=== PATIENT | female | born 1960 | race Caucasian/White ===

== ENCOUNTER → 2020-02-13 | Day surgery (SDC) | payer BC, OTHER ==
[2019-12-01 10:54] LABS: BASOPHILS % 0.3 % (0.0-1.0); EOSINOPHILS # (AUTO) 0.1 (0.0-0.4); EOSINOPHILS % 1.9 % (0.0-6.0); HEMATOCRIT 43.7 % (34.2-44.1); HEMOGLOBIN 14.3 g/dL (12.0-16.0); LYMPHOCYTES # (AUTO) 1.1 (1.0-3.2); LYMPHOCYTES % 18.4 % (18.0-39.1); MEAN CORPUSCULAR HEMOGLOBIN 29.6 pg (28-32); MEAN CORPUSCULAR HGB CONC 32.7 g/dL (31-35); MEAN CORPUSCULAR VOLUME 90.5 fL (81-99); MONOCYTES # (AUTO) 0.5 (0.2-0.8); MONOCYTES % 8.5 % (4.4-11.3); NEUTROPHILS # (AUTO) 4.2 (2.1-6.9); NEUTROPHILS % 70.7 % (38.7-80.0); PLATELET COUNT 279 x10e3/uL (140-360); RED BLOOD COUNT 4.83 x10e6/uL (3.6-5.1); RED CELL DISTRIBUTION WIDTH 13.2 % (11.7-14.4)
[2019-12-01 11:15] LABS: ANION GAP 10.8 mmol/L (8-16); BLOOD UREA NITROGEN 15 mg/dL (7-26); BUN/CREATININE RATIO 17 (6-25); CALCIUM 10.1 mg/dL (8.4-10.2); CARBON DIOXIDE 30 mmol/L (22-29); CHLORIDE 104 mmol/L (98-107); EST GLOMERULAR FILTRATION RATE > 60 ML/MIN (60-); GLUCOSE 95 mg/dL (74-118); POTASSIUM 3.8 mmol/L (3.5-5.1); SODIUM 141 mmol/L (136-145)
[2020-02-09 12:20] LABS: BASOPHILS % 0.3 % (0.0-1.0); EOSINOPHILS # (AUTO) 0.2 (0.0-0.4); HEMATOCRIT 41.9 % (34.2-44.1); HEMOGLOBIN 13.7 g/dL (12.0-16.0); LYMPHOCYTES # (AUTO) 1.2 (1.0-3.2); LYMPHOCYTES % 17.3 % (18.0-39.1); MEAN CORPUSCULAR HEMOGLOBIN 28.7 pg (28-32); MEAN CORPUSCULAR HGB CONC 32.7 g/dL (31-35); MEAN CORPUSCULAR VOLUME 87.7 fL (81-99); MONOCYTES # (AUTO) 0.7 (0.2-0.8); MONOCYTES % 9.6 % (4.4-11.3); NEUTROPHILS # (AUTO) 4.9 (2.1-6.9); NEUTROPHILS % 69.5 % (38.7-80.0); PLATELET COUNT 256 x10e3/uL (140-360); RED BLOOD COUNT 4.78 x10e6/uL (3.6-5.1); RED CELL DISTRIBUTION WIDTH 13.3 % (11.7-14.4)
[2020-02-09 12:47] LABS: ANION GAP 14.7 mmol/L (8-16); BLOOD UREA NITROGEN 20 mg/dL (7-26); BUN/CREATININE RATIO 22 (6-25); CARBON DIOXIDE 27 mmol/L (22-29); CHLORIDE 104 mmol/L (98-107); CREATININE, SERUM 0.92 mg/dL (0.57-1.11); EST GLOMERULAR FILTRATION RATE > 60 ML/MIN (60-); GLUCOSE 99 mg/dL (74-118); POTASSIUM 4.7 mmol/L (3.5-5.1); SODIUM 141 mmol/L (136-145)
--- NOTE | 2020-02-09 12:58 | Diagnostic Imaging Report ---
Exam: Chest radiograph Clinical History: Preoperative clearance Findings: The cardiomediastinal silhouette and lungs are normal. The regional skeleton and soft tissue are unremarkable. There is no evidence of pleural effusion or pneumothorax. Impression: No radiographic evidence of acute cardiopulmonary disease. Signed by: Dr. Rai Mccollum MD on 02/09/2020 12:54 PM
[~2020-02-13] MED LIST: BREO ELLIPTA 11 EACH INH; BUPIVACAINE HCL 0.5% INJ 30 ML VIAL INJ ONE; CEFAZOLIN SOD 1 GM/NS 50ML 100 ML IV ONE; DEXAMETHASONE SOD PHOS INJ 4 MG/ML VIAL ONE; DIOVAN; FENTANYL CITRATE/PF 100MCG/2 ML INJ ONE; HYDROCHLOROTHIA25 MG PO; LIDOCAINE HCL 2% LOCAL INJ 5 ML SDV VIAL INJ ONE; LISINOPRIL10 MG PO; NEOSTIGMINE 1 MG/ML 10ML VIAL ONE; ONDANSETRON HCL INJ 2MG/ML 2ML 2 MG/ML VIAL ONE; PRAVASTATIN SOD20 MG PO; PROAIR HFA INH8.5 GM INH; PROPOFOL IV EMULSION 10 MG/ML 20 ML VIAL ONE; SEVOFLURANE INHAL SOLN 250 ML PEN BTL ONE
--- NOTE | 2020-02-13 09:51 | Diagnostic Imaging Report ---
OR Fluoroscopy: IMPRESSION: Fluoroscopy service provided in the OR. Interpretation not requested. Signed by: Benji Michelle MD on 02/13/2020 9:48 AM
[2020-02-13 10:25] VITALS: BP 136/73
--- NOTE | 2020-02-13 18:41 | Operative Report ---
DATE OF PROCEDURE: 02/13/2020 SURGEON: Shonna Oates DPM UNDERGROUND HEAVY EQUIPMENT OPERATOR: None. PREOPERATIVE DIAGNOSES: 1. Right plantar flex metatarsal with dislocated MPJ 2nd. 2. Right 2nd hammertoe. 3. Right DIPJ hammertoe 3rd digit, right foot. POSTOPERATIVE DIAGNOSES: 1. Right plantar flex metatarsal with dislocated MPJ 2nd. 2. Right 2nd hammertoe. 3. Right DIPJ hammertoe 3rd digit, right foot. PROCEDURES: 1. Rayne osteotomy, 2nd with internal fixation. 2. Arthrodesis right 2nd PIPJ. 3. Arthroplasty DIPJ, 3rd. ANESTHESIA: General anesthetic. HEMOSTASIS: Thigh tourniquet at 350 mmHg. ESTIMATED BLOOD LOSS: Less than 10 mL. MATERIALS: A 2 x 4 allograft, a 60 mm 10-degree angle Smart Toe, a 60 mm x 20 mm snap screw. COMPLICATIONS: None. CONDITION: Stable. PROCEDURE IN DETAIL: Under mild sedation, the patient was brought to the operating room, placed on the operating table in supine position. Following IV sedation, anesthesia was obtained with a general anesthetic. At this point, the right foot was scrubbed, prepped, and draped in the usual aseptic manner. The leg was lowered to the table after the pneumatic ankle tourniquet was inflated to 350 mmHg. Attention was then directed to the dorsal aspect of the right foot, where a linear incision was made overlying the 2nd MPJ. The incision was deepened down to the level of the MPJ. A linear capsulotomy was then made taking care to retract or cauterize neurovascular structures as necessary. Once the metatarsal was visualized and the MPJ was visualized, it was fully dislocated. The linear capsulotomy was performed. The metatarsal was then freed from its attachments. The Rayne decompression osteotomy was then made at the 2nd metatarsal. It was then fixated utilizing a 16 mm snap screw from [employer]. It was noted to be adequate alignment clinically with the use of intraoperative fluoroscopy. Arthrodesis PIPJ, 2nd right. Attention was then directed to the dorsal aspect of the PIPJ, where a linear incision was made overlying the PIPJ joint. The incision was deepened down to the level of the extensor tendon. The extensor tendon was then tenotomized. The joint was then prepared for arthrodesis. A Smart Toe 60 mm x 10 mm bent was used. The first implant that was open, popped off and fell on the floor, so a second implant had to be used. The first implant never touch the patient. A Smart Toe was then inserted in a standard fashion. There was noted to be adequate compression and adequate alignment clinically with the use of intraoperative fluoroscopy. Arthroplasty DIPJ, 3rd. Attention was then directed to the DIPJ, where a linear incision was made overlying the DIPJ. The incision was deepened to the level of the capsule. Linear capsulotomy was then performed. The contracture was released at the joint and the joint acquired a more anatomical position. All incisions were then flushed with copious amount of normal sterile saline solution. A 2 x 4 AlloWrap was then inserted into the area of the incision at the 2nd noted to prevent adhesions to promote healing to the area. The area was then closed closing the deepest layer with 3-0 Vicryl, 4-0 Vicryl, and 4-0 nylon. Clean dressing was applied consisting of Adaptic, Coban, 4x4s, Kerlix, and an Yusef bandage. The tourniquet was deflated. There was noted to be hyperemic response to all the digits. The patient tolerated the procedure and anesthesia well, was transferred to recovery room with vital signs stable and vascular status intact. The patient will be discharged home when she meets treatment criteria. She was given instructions to be nonweightbearing, to ice and elevate the foot while at rest, follow up with me in the office and to call office if any questions, concerns, or any new problems arise. ROSALINA Ford/STEFFL /[id number]
== END | disposition home or self-care (01) ==
LOC: OR 05:24
PROVIDERS: ATTEND Podiatrist Foot & Ankle Surgery
DX: M21.271 Flexion deformity, right ankle and toes (principal); M20.41 Other hammer toe(s) (acquired), right foot; S93.124A Dislocation of metatarsophalangeal joint of right lesser toe(s), initial encounter; G47.33 Obstructive sleep apnea (adult) (pediatric); E66.9 Obesity, unspecified; J45.909 Unspecified asthma, uncomplicated; I10 Essential (primary) hypertension; E78.5 Hyperlipidemia, unspecified; N20.0 Calculus of kidney; X58.XXXA Exposure to other specified factors, initial encounter; Z01.810 Encounter for preprocedural cardiovascular examination; Z01.812 Encounter for preprocedural laboratory examination; Z01.818 Encounter for other preprocedural examination; Z11.59 Encounter for screening for other viral diseases
CPT/HCPCS: 28285 ×2; 28308; 36415 ×2; 71046; 80048 ×2; 85025 ×2; 87635; 93005; C1713 ×2; C1776; J0690; J1100; J2001; J2405; J2704; J2710; J3010; 76000